=== PATIENT | male | born 1970 | race African-American/Black ===

== ENCOUNTER 2016-12-29 18:22 | Emergency (ER) | payer OTHER ==
[~2016-12-29] VITALS: Ht 177.8 cm; Wt 121.4 kg
[2016-12-29 18:25] VITALS: TEMP 37; Ht 177.8 cm; Wt 121.4 kg
[2016-12-29] MEDS ORDERED: INSHRIE SQ (18:32)
[2016-12-29] MEDS ORDERED: LISI40TA PO (18:32)
[2016-12-29] MEDS ORDERED: DOCU100C31 PO (18:32)
[2016-12-29] MEDS ORDERED: NORT25CA PO (18:32)
[2016-12-29] MEDS ORDERED: VNTHFA/IN INH (18:32)
[2016-12-29] MEDS ORDERED: HYDR12.55 PO (18:32)
[2016-12-29] MEDS ORDERED: AMLO2.5T PO (18:32)
[2016-12-29] MEDS ORDERED: ASPCH81X PO (18:32)
[2016-12-29] MEDS ORDERED: CICL80AE PO (18:32)
[2016-12-29] MEDS ORDERED: METF-384 PO (18:32)
[2016-12-29] MEDS ORDERED: FLUC200T PO (18:32)
[2016-12-29] MEDS ORDERED: INSHNI SQ (18:32)
[2016-12-29] MEDS ORDERED: ACETAMINOPHEN 325 MG TAB PO STA (18:37)
[2016-12-29] MEDS ORDERED: ATOR-22 PO (18:37)
[2016-12-29] MEDS ORDERED: HYDROCODONE/ACETAMOPHEN 5/325MG TAB PO STA (18:37)
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
[2016-12-29] MEDS ORDERED: DIPHTHERIA/TETANUS/PERTUSSIS 0.5 ML SYR/VIAL IM. ONE (19:45)
[2016-12-29 20:07] VITALS: BP 140/104; PULSE 90; O2SAT 95
== END 2016-12-29 20:08 | disposition home or self-care (01) ==
LOC: EDBD 18:22 → C.EDC 18:26
DX: S01.01XA Laceration without foreign body of scalp, initial encounter (principal); S00.03XA Contusion of scalp, initial encounter; Y09 Assault by unspecified means; M25.461 Effusion, right knee; Z23 Encounter for immunization; I10 Essential (primary) hypertension; E11.9 Type 2 diabetes mellitus without complications; J45.909 Unspecified asthma, uncomplicated; Z79.82 Long term (current) use of aspirin; Z79.4 Long term (current) use of insulin; Z79.84 Long term (current) use of oral hypoglycemic drugs; Z79.899 Other long term (current) drug therapy